=== PATIENT | male | born 1990 | race Two or more races ===

== ENCOUNTER 2017-08-10 20:25 | Emergency (ER) | payer SELFPAY ==
[2017-08-10 22:14] LABS: BILIRUBIN,URINE NEGATIVE (NEG); CLARITY,URINE CLEAR; COLOR,URINE YELLOW; GLUCOSE,URINE NEGATIVE (NEG); NITRITE,URINE NEGATIVE (NEG); PH,URINE 6.5; PROTEIN,URINE NEGATIVE (NEG-TRACE); UROBILINOGEN,URINE 0.2 mg/dL (0.2 mg/dL)
[2017-08-10 22:24] LABS: BACTERIA,URINE 0 /HPF (0-FEW); RBC,URINE 0 /HPF (0-2); SQUAMOUS EPITHELIAL CELL,UR FEW /LPF
[2017-08-11] MEDS: PENICILLIN G BENZATHINE LA 2,400,000 UNIT/4 ML DISP.SYRIN. IM (00:50)
[2017-08-11] MEDS ORDERED: LIDOCAINE 1% PF 2 ML VIAL. (01:50)
[2017-08-11] MEDS: AZITHROMYCIN 250 MG TABLET. PO (02:00)
[2017-08-11] MEDS: cefTRIAXone IM 250 MG VIAL IM (02:01)
[2017-08-12 07:34] LABS: RPR Non Reactive (Non Reactive)
== END 2017-08-11 02:15 | disposition home or self-care (01) ==
LOC: ER 08-11 02:15
DX: A64 Unspecified sexually transmitted disease (principal); F17.210 Nicotine dependence, cigarettes, uncomplicated
CPT/HCPCS: 36415; 81001; 86593; 96372; 99284; J0561; J0696; Q0144